=== PATIENT | female | born 1995 | race Caucasian/White ===

== ENCOUNTER 2023-06-13 04:20 | Emergency (ER) | payer OTHER ==
[2023-06-13] MEDS ORDERED: FAMOTIDINE 20 MG TABLET PO ONE (04:52)
[2023-06-13] MEDS ORDERED: MAG HYDROX/AL HYDROX/SIMETH 30 ML UNIT-DOSE CUP PO ONE (04:52)
[2023-06-13 04:53] VITALS: BP 119/73; PULSE 67; RESP 20; TEMP 98.3; BMI 33.6
[2023-06-13] MEDS ORDERED: MAG HYDROX/AL HYDROX/SIMETH 30 ML UNIT-DOSE CUP ONE (05:27)
[2023-06-13] MEDS ORDERED: FAMOTIDINE 20 MG TABLET ONE (05:27)
== END 2023-06-13 06:24 | disposition home or self-care (01) ==
LOC: JER 04:20
DX: R10.13 Epigastric pain (principal); R11.10 Vomiting, unspecified; R14.2 Eructation; F10.90 Alcohol use, unspecified, uncomplicated; Y90.9 Presence of alcohol in blood, level not specified
CPT/HCPCS: 99283-25